=== PATIENT | female | born 1945 | race Caucasian/White ===

== ENCOUNTER 2022-07-23 16:31 | Inpatient (IN) | payer BC ==
[~2022-07-23] VITALS: Ht 160 cm; Wt 53.1 kg
[2022-07-23 16:44] VITALS: BP_SYST 139
--- NOTE | 2022-07-23 16:44 | NUR ---
Patient triaged and placed in waiting room. VSS and patient appears in no acute distress at this time. Accompanied by FAMILY, awaiting available bed, and MD notified of need for MSE.
--- NOTE | 2022-07-23 17:02 | NUR ---
BROUGHT BACK TO BED #5 AND TRIAGED. REPORT GIVEN TO CRISTA
--- NOTE | 2022-07-23 17:25 | NUR ---
EDP AT BEDSIDE FOR INITIAL ASSESSMENT.
[2022-07-23 17:33] LABS: BASOPHILS # (AUTO) 0.1 K/uL (0.0-0.2); BASOPHILS % (AUTO) 1.5 % (0.0-2.0); EOSINOPHILS # (AUTO) 0.2 K/uL (0.0-0.4); EOSINOPHILS % (AUTO) 2.4 % (0.0-4.0); HEMATOCRIT 22.1 % (36-48); HEMOGLOBIN 7.2 g/dL (12.0-16.0); LYMPHOCYTES % (AUTO) 39.4 % (20.5-51.5); MEAN CORPUSCULAR HEMOGLOBIN 31 pg (27-31); MEAN CORPUSCULAR HGB CONC 33 % (32-36); MEAN CORPUSCULAR VOLUME 94 fL (79.0-98.0); MONOCYTES # (AUTO) 0.7 K/uL (0.0-1.0); MONOCYTES % (AUTO) 9.2 % (1.7-9.3); NEUTROPHILS # (AUTO) 3.6 K/uL (1.8-7.7); NEUTROPHILS % (AUTO) 47.5 % (40.0-70.0); PLATELET COUNT (AUTO) 216 K/uL (130-430); RED BLOOD CELL COUNT(AUTO) 2.36 MIL/uL (4.2-6.2); RED CELL DISTRIBUTION WIDTH 14.7 % (9.0-15.0); WHITE BLOOD COUNT (AUTO) 7.5 K/uL (4.8-10.8)
[2022-07-23 17:50] LABS: ANION GAP 9 (5-15); CHLORIDE 107 mmol/L (98-107); CREATININE 1.49 mg/dL (0.55-1.30); GLUCOSE 113 mg/dL (70-99); UREA NITROGEN, BLOOD 28 mg/dL (8-21)
[2022-07-23 17:58] LABS: ALANINE AMINOTRANSFERASE 16 U/L (12-78); ALBUMIN 3.7 g/dL (3.4-4.8); ASPARTATE AMINOTRANSFERASE 23 U/L (10-37); TOTAL BILIRUBIN 0.2 mg/dL (0.0-1.0)
--- NOTE | 2022-07-23 18:05 | NUR ---
RECTAL EXAM PERFORMED BY EDP WITH FEMALE RN AT BEDSIDE AND DAUGHTER.
--- NOTE | 2022-07-23 18:33 | NUR ---
PATIENT AMBULATORY TO BATHROOM.
[2022-07-23] MEDS: D5/0.45 NS 1,000 ML IV SCH (19:05)
--- NOTE | 2022-07-23 19:50 | NUR ---
Received report from SOO Santamaria; assuming care of patient at this time.
--- NOTE | 2022-07-23 20:00 | NUR ---
Patient A/Ox4, VSS, ambulatory, resp even and unlabored. Patient resting comfortably in bed stephanie safety precautions in place. Patient's daughter at bedside. Nad noted at this time.
--- NOTE | 2022-07-23 20:45 | NUR ---
Patient's daughter going home at this time; left phone number to be contacted when patient goes to floor or with any updates. Patient's daughter, Julianna Mcconnell, .
--- NOTE | 2022-07-23 20:58 | NUR ---
Consent signed per patient Mishel King agreeing to administration of blood. Blood has been type and crossmatched. Blood sent from blood bank. Information on unit of blood checked against patient wristband at bedside by two nurses. All information matches. Patient or responsible libertarian informed of potential complications associated with blood transfusion. Informed of possible transfusion reaction symptoms. Aware of need to notify nurse at once of itching, shortness of breath, flushing, feeling of impending doom, or other symptoms not previously present. Vital signs taken within 5 minutes prior to initiation of transfusion. RN will remain with patient for first 15 minutes of transfusion at which time vital signs will be re-assessed.
--- NOTE | 2022-07-23 21:13 | NUR ---
Patient tolerating blood transfusion well.
[2022-07-23] MEDS: PANTOPRAZOLE SODIUM 40 MG TAB PO SCH (21:37)
--- NOTE | 2022-07-23 23:20 | NUR ---
COVID SWAB COLLECTED AND SENT TO LAB.
--- NOTE | 2022-07-24 | NUR ---
Patient sleeping comfortably in bed with safety precautions in place. NAD noted at this time.
--- NOTE | 2022-07-24 04:58 | NUR ---
Patient sleeping comfortably in bed with safety precautions in place. Nad noted at this time
[2022-07-24] MEDS ORDERED: ONDANSETRON HCL 4 MG/2 ML VIAL IVP PRN (06:15)
--- NOTE | 2022-07-24 07:13 | NUR ---
Report given to SOO Navarro who will assume care of patient at this time
--- NOTE | 2022-07-24 07:15 | NUR ---
RECEIVED PT IN BED #5 FROM NIGHTSHIFT RN. PT IS STABLE, NAD, VSS, SLEEPING AT THIS TIME, AAOX3, AWAITING DISPOSITION TO TELE FLOOR.
--- NOTE | 2022-07-24 07:32 | NUR ---
Admit bed requested Patient will be admitted to care of . Admitted to TELE unit. Diagnosis GI BLEED Inpatient (Yes or No) YES Observation (Yes or No) NO Orientation concerns or request close to nursing station (Yes or No) NO Covid Status NEGATIVE On vent or bipap NO Isolation requirements NO Needs a sitter NO From Home (Yes or if No enter name of facility) HOME Requires Dialysis (Yes or No) NO Med Rec Completed (Yes of No) YES
--- NOTE | 2022-07-24 07:45 | NUR ---
DAUGHTER AND MD LUCIA AT BEDSIDE. PT AND FAMILY UPDATED WITH CURRENT STATUS AND COLONOSCOPY TOMORROW. CURRENT DIET REMAINS CLEAR LIQUID.
[2022-07-24] MEDS: PANTOPRAZOLE SODIUM 40 MG TAB PO SCH ×2 (09:00→22:50)
[2022-07-24] MEDS ORDERED: PANTOPRAZOLE SODIUM 40 MG TAB PO ONE (09:09)
[2022-07-24 15:30] VITALS: BP_SYST 152
--- NOTE | 2022-07-24 15:30 | NUR ---
ADMISSION NOTE RECEIVED PT FROM [place] [facility]. SHE IS ALERT, NON ARMENIAN SPEAKING, IV IN RIGHT FOREARM. PT'S DAUGHTER FOLLOWED INTO HER ROOM. MEDICAL HISTORY PROVIDED BY HER AND THE PATIENT.
--- NOTE | 2022-07-24 15:57 | NUR ---
GI CONSULT DR LUCIA IS AWARE.
[2022-07-24] MEDS ORDERED: BISACODYL 5 MG TABLET.DR (DULCOLAX) PO ONE (17:00)
[2022-07-24] MEDS ORDERED: GOLYTELY / COLYTE SOLUTION 4 LITERS PO ONE (18:00)
--- NOTE | 2022-07-24 18:05 | NUR ---
CONSENT PT GAVE CONSENT FOR COLONOSCOPY, WITNESSED BY PT'S DAUGHTER RUSLAN.
[2022-07-24] MEDS: D5/0.45 NS 1,000 ML IV SCH (22:52)
[2022-07-25 08:00] VITALS: BP_SYST 163
[2022-07-25] MEDS: PANTOPRAZOLE SODIUM 40 MG TAB PO SCH ×2 (09:00→20:13)
[2022-07-25 09:13] LABS: PROTHROMBIN TIME 10.1 SECS (9.5-12.5)
[2022-07-25 09:18] LABS: ALANINE AMINOTRANSFERASE 12 U/L (12-78); ALBUMIN 3.3 g/dL (3.4-4.8); ANION GAP 8 (5-15); ASPARTATE AMINOTRANSFERASE 18 U/L (10-37); CALCIUM 8.4 mg/dL (8.4-11.0); CHLORIDE 114 mmol/L (98-107); CREATININE 1.11 mg/dL (0.55-1.30); GLUCOSE 105 mg/dL (70-99); TOTAL BILIRUBIN 0.4 mg/dL (0.0-1.0); UREA NITROGEN, BLOOD 12 mg/dL (8-21)
[2022-07-25 09:45] LABS: HEMATOCRIT 22.8 % (36-48); HEMOGLOBIN 7.3 g/dL (12.0-16.0); MEAN CORPUSCULAR HEMOGLOBIN 28 pg (27-31); MEAN CORPUSCULAR HGB CONC 32 % (32-36); MEAN CORPUSCULAR VOLUME 88 fL (79.0-98.0); RED BLOOD CELL COUNT(AUTO) 2.59 MIL/uL (4.2-6.2); RED CELL DISTRIBUTION WIDTH 18.4 % (9.0-15.0); WHITE BLOOD COUNT (AUTO) 5.9 K/uL (4.8-10.8)
[2022-07-25 09:46] LABS: BASOPHILS % (AUTO) 0.7 % (0.0-2.0); EOSINOPHILS # (AUTO) 0.2 K/uL (0.0-0.4); EOSINOPHILS % (AUTO) 2.6 % (0.0-4.0); LYMPHOCYTES % (AUTO) 33.3 % (20.5-51.5); MONOCYTES # (AUTO) 0.5 K/uL (0.0-1.0); MONOCYTES % (AUTO) 9.2 % (1.7-9.3); NEUTROPHILS # (AUTO) 3.2 K/uL (1.8-7.7); NEUTROPHILS % (AUTO) 54.2 % (40.0-70.0); PLATELET COUNT (AUTO) 189 K/uL (130-430)
[2022-07-25] MEDS ORDERED: MIDAZOLAM HCL 5 MG/5 ML VIAL ONE (10:16)
[2022-07-25] MEDS ORDERED: MEPERIDINE HCL/PF 25 MG/ML DISP.SYRIN ONE (10:16)
[2022-07-25] MEDS ORDERED: TOPXL100 PO (11:12)
[2022-07-25] MEDS ORDERED: LISI2.5T48 PO (11:12)
[2022-07-25] MEDS ORDERED: fentaNYL CITRATE/PF 100 MCG/2 ML AMP ONE (11:16)
[2022-07-25 12:14] VITALS: BP_SYST 140
[2022-07-25] MEDS: D5/0.45 NS 1,000 ML IV SCH (15:22)
--- NOTE | 2022-07-25 16:00 | NUR ---
pt resting quietly no s/s of distress no bloody stools at this time. will continue to monitor.
[2022-07-25 16:41] VITALS: BP_SYST 140
[2022-07-25 20:00] VITALS: BP_SYST 127
--- NOTE | 2022-07-25 20:00 | NUR ---
Paged Dr. Marie for home meds patient is tachycardic.
[2022-07-25 23:51] VITALS: BP_SYST 104
--- NOTE | 2022-07-26 | NUR ---
PATIENT RESTING: Patient resting quietly. No acute distress noted. Vital signs within normal range.
--- NOTE | 2022-07-26 05:28 | NUR ---
CONSULTATION PAGED/CALLED Reason for Consultation: CARDIOMYOPATHY Person Who was Notified: DR ROS Davis Consulting Physician: DR. ROS Davis [employer]ipelines Supervisor Specialty: COLLECTIONS MANAGER Ordering Physician: DR. DOMÍNGUEZ
--- NOTE | 2022-07-26 06:25 | NUR ---
Cardio/tachycardic Patient tachycardic up to 140/min out of bed denies any chest pain,no dizziness, morning beta almita given early ,in bed HR 110/min, will monitor.
[2022-07-26] MEDS: METOPROLOL SUCCINATE 50 MG TAB.SR.24H (TOPROL XL) PO SCH (06:30)
[2022-07-26 08:59] LABS: BASOPHILS # (AUTO) 0.1 K/uL (0.0-0.2); BASOPHILS % (AUTO) 0.7 % (0.0-2.0); EOSINOPHILS # (AUTO) 0.3 K/uL (0.0-0.4); EOSINOPHILS % (AUTO) 3.9 % (0.0-4.0); LYMPHOCYTES # (AUTO) 1.3 K/uL (1.0-5.5); LYMPHOCYTES % (AUTO) 16.7 % (20.5-51.5); MEAN CORPUSCULAR HEMOGLOBIN 29 pg (27-31); MEAN CORPUSCULAR HGB CONC 32 % (32-36); MEAN CORPUSCULAR VOLUME 88 fL (79.0-98.0); MONOCYTES # (AUTO) 0.6 K/uL (0.0-1.0); MONOCYTES % (AUTO) 7.6 % (1.7-9.3); NEUTROPHILS # (AUTO) 5.7 K/uL (1.8-7.7); NEUTROPHILS % (AUTO) 71.1 % (40.0-70.0); PLATELET COUNT (AUTO) 166 K/uL (130-430); RED BLOOD CELL COUNT(AUTO) 2.38 MIL/uL (4.2-6.2); RED CELL DISTRIBUTION WIDTH 18.2 % (9.0-15.0)
[2022-07-26 09:00] VITALS: BP_SYST 154
[2022-07-26] MEDS ORDERED: lisinopriL 5 MG TABLET PO SCH (09:00)
--- NOTE | 2022-07-26 09:00 | NUR ---
PT RESTING QUIETLY NO COMPLAINTS THIS AM. DAUGHTER AT BEDSIDE PLAN OF CARE DISCUSSED WITH PT. WILL CONTINUE TO MONITOR PT
[2022-07-26] MEDS: PANTOPRAZOLE SODIUM 40 MG TAB PO SCH ×2 (09:07→20:14)
[2022-07-26 09:43] LABS: HEMOGLOBIN 6.8 g/dL (12.0-16.0)
[2022-07-26] MEDS ORDERED: lisinopriL 5 MG TABLET PO ONE (12:30)
[2022-07-26 15:30] VITALS: BP_SYST 153
[2022-07-26 20:00] VITALS: BP_SYST 179
[2022-07-26] MEDS: D5/0.45 NS 1,000 ML IV SCH (22:55)
[2022-07-27 00:19] VITALS: BP_SYST 162
[2022-07-27] MEDS: D5/0.45 NS 1,000 ML IV SCH ×2 (03:00→23:32)
--- NOTE | 2022-07-27 05:20 | NUR ---
ROUNDS PATIENT IS SLEEPING COMFORTABLE IN HER BED, NO S/S OF DISTRESS, WILL CONTINUE TO MONITOR FOR ANY ADVERSE REACHING DUE TO THE BLOOD TRANSFUSION.
--- NOTE | 2022-07-27 07:14 | NUR ---
CLOSING Patient is AOx4 Danish speaking, able to ambulate to the bathroom with assist, no c/o pain nor discomfort. bed at lowest position and call light within reach. endorse to incoming nurse.
--- NOTE | 2022-07-27 07:15 | NUR ---
Opening note Received SBAR from night RN. Patient in bed, respirations even, non labored, bed in low and locked position call light within reach. bed alarm on.
[2022-07-27 08:00] VITALS: BP_SYST 158
[2022-07-27] MEDS: lisinopriL 20 MG TABLET PO SCH (08:50)
[2022-07-27] MEDS: PANTOPRAZOLE SODIUM 40 MG TAB PO SCH ×2 (08:50→21:02)
[2022-07-27] MEDS: METOPROLOL SUCCINATE 50 MG TAB.SR.24H (TOPROL XL) PO SCH (08:51)
--- NOTE | 2022-07-27 08:57 | NUR ---
nurse note patient in bed, respirations even, non labored. Bed in low and locked position call light within reach, bed alarm on. daughter is bedside. patient denies any pain or discomfort
[2022-07-27 09:21] LABS: BASOPHILS # (AUTO) 0.1 K/uL (0.0-0.2); BASOPHILS % (AUTO) 0.9 % (0.0-2.0); EOSINOPHILS # (AUTO) 0.5 K/uL (0.0-0.4); EOSINOPHILS % (AUTO) 5.8 % (0.0-4.0); HEMATOCRIT 33.6 % (36-48); HEMOGLOBIN 11.3 g/dL (12.0-16.0); LYMPHOCYTES # (AUTO) 1.9 K/uL (1.0-5.5); LYMPHOCYTES % (AUTO) 23.9 % (20.5-51.5); MEAN CORPUSCULAR HEMOGLOBIN 30 pg (27-31); MEAN CORPUSCULAR HGB CONC 34 % (32-36); MEAN CORPUSCULAR VOLUME 89 fL (79.0-98.0); MONOCYTES # (AUTO) 0.8 K/uL (0.0-1.0); MONOCYTES % (AUTO) 10.5 % (1.7-9.3); NEUTROPHILS # (AUTO) 4.7 K/uL (1.8-7.7); NEUTROPHILS % (AUTO) 58.9 % (40.0-70.0); PLATELET COUNT (AUTO) 155 K/uL (130-430); RED BLOOD CELL COUNT(AUTO) 3.79 MIL/uL (4.2-6.2); RED CELL DISTRIBUTION WIDTH 15.6 % (9.0-15.0); WHITE BLOOD COUNT (AUTO) 7.9 K/uL (4.8-10.8)
--- NOTE | 2022-07-27 09:25 | NUR ---
bloody stool patient had bowel movement, blood present in toilet
[2022-07-27 12:00] VITALS: BP_SYST 159
--- NOTE | 2022-07-27 13:40 | NUR ---
NURSE NOTE PATIENT IN BED, RESPIRATIONS EVEN, NON LABORED, 2L 02 NASAL CANULA BED IN LOW AND LOCKED POSITION, CALL LIGHT WITHIN REACH, FRIEND BEDSIDE
--- NOTE | 2022-07-27 13:51 | NUR ---
NURSE NOTE PATIENT TAKEN VIA WHEEL CHAIR TO GI LAB Addendum: 07/27/22 at 1448 by Placido Damon RN NOT IN GI BUT IN NUCLEAR MED
--- NOTE | 2022-07-27 14:45 | NUR ---
NURSE NOTE WHILE PATIENT OUT OF THE ROOM, CHANGED BED LINENS
--- NOTE | 2022-07-27 16:09 | NUR ---
returned returned from [facility]. patient in bed, respirations even, non labored, bed in low and locked position, call light within reach, attached to IVF's
[2022-07-27 16:10] VITALS: BP_SYST 158
--- NOTE | 2022-07-27 17:40 | NUR ---
NURSE NOTE PATIENT IN BED, RESPIRATIONS EVEN, NON LABORED, BED IN LOW AND LOCKED POSITION CALL LIGHT WITHIN REACH, IVF'S RUNNING ORDERED. DAUGHTER IS BEDSIDE
--- NOTE | 2022-07-27 19:15 | NUR ---
CLOSING PROVIDED SBAR TO NIGHT RN. PATIENT IN BED, RESPIRATIONS EVEN, NON LABORED BED IN LOW AND LOCKED POSITION, CALL LIGHT WITHIN REACH, IVF'S RUNNING ORDERED. BED IN LOW AND LOCKED POSITION CALL LIGHT WITHIN REACH, ENDORSED CARE TO NIGHT RN.
[2022-07-27 20:00] VITALS: BP_SYST 136
--- NOTE | 2022-07-27 23:29 | NUR ---
Patient in bed. No acute distress noted. Patient requested a warm blanket. [place] given to the patient. Will continue to monitor.
[2022-07-28 04:00] VITALS: BP_SYST 125
[2022-07-28 08:54] LABS: ANION GAP 5 (5-15); BASOPHILS % (AUTO) 0.5 % (0.0-2.0); CALCIUM 8.5 mg/dL (8.4-11.0); CHLORIDE 108 mmol/L (98-107); CREATININE 1.08 mg/dL (0.55-1.30); EOSINOPHILS # (AUTO) 0.4 K/uL (0.0-0.4); EOSINOPHILS % (AUTO) 5.3 % (0.0-4.0); GLUCOSE 112 mg/dL (70-99); HEMATOCRIT 31.8 % (36-48); HEMOGLOBIN 10.5 g/dL (12.0-16.0); LYMPHOCYTES # (AUTO) 1.6 K/uL (1.0-5.5); LYMPHOCYTES % (AUTO) 19.8 % (20.5-51.5); MEAN CORPUSCULAR HEMOGLOBIN 30 pg (27-31); MEAN CORPUSCULAR HGB CONC 33 % (32-36); MEAN CORPUSCULAR VOLUME 89 fL (79.0-98.0); MONOCYTES # (AUTO) 0.7 K/uL (0.0-1.0); MONOCYTES % (AUTO) 8.4 % (1.7-9.3); NEUTROPHILS # (AUTO) 5.5 K/uL (1.8-7.7); PLATELET COUNT (AUTO) 145 K/uL (130-430); RED BLOOD CELL COUNT(AUTO) 3.56 MIL/uL (4.2-6.2); RED CELL DISTRIBUTION WIDTH 15.7 % (9.0-15.0); UREA NITROGEN, BLOOD 11 mg/dL (8-21); WHITE BLOOD COUNT (AUTO) 8.3 K/uL (4.8-10.8)
[2022-07-28] MEDS: METOPROLOL SUCCINATE 50 MG TAB.SR.24H (TOPROL XL) PO SCH (09:51)
[2022-07-28] MEDS: lisinopriL 20 MG TABLET PO SCH (09:51)
[2022-07-28] MEDS: PANTOPRAZOLE SODIUM 40 MG TAB PO SCH ×2 (09:52→20:29)
[2022-07-28] MEDS ORDERED: SILDENAFIL CITRATE 20 MG TABLET PO ONE (11:30)
[2022-07-28 11:46] VITALS: BP_SYST 158
[2022-07-28] MEDS: SILDENAFIL CITRATE 20 MG TABLET PO SCH ×2 (15:00→20:29)
[2022-07-28 16:39] VITALS: BP_SYST 146
[2022-07-28] MEDS: D5/0.45 NS 1,000 ML IV SCH (19:00)
[2022-07-28 20:00] VITALS: BP_SYST 156
--- NOTE | 2022-07-28 21:55 | NUR ---
Patient in bed. No acute distress noted. No bleeding noted. Will continue to monitor.
[2022-07-29 03:26] VITALS: BP_SYST 96
--- NOTE | 2022-07-29 07:32 | NUR ---
OPENING NOTES: RECEIVED BEDSIDE SBAR FROM PM SHIFT NURSE, NO S/S OF DISTRESS, NON LABOR BREATHING IV INTACT, BED AT LOW AND LOCKED POSITION CALL LIGHT IN REACH SAFETY CHECKS DONE THIS AM, WILL MONITOR PATIENT FOR ORDERS.
[2022-07-29 07:49] LABS: BASOPHILS % (AUTO) 0.4 % (0.0-2.0); EOSINOPHILS # (AUTO) 0.5 K/uL (0.0-0.4); EOSINOPHILS % (AUTO) 5.2 % (0.0-4.0); HEMATOCRIT 32.2 % (36-48); HEMOGLOBIN 10.9 g/dL (12.0-16.0); LYMPHOCYTES # (AUTO) 1.8 K/uL (1.0-5.5); LYMPHOCYTES % (AUTO) 19.9 % (20.5-51.5); MEAN CORPUSCULAR HEMOGLOBIN 30 pg (27-31); MEAN CORPUSCULAR HGB CONC 34 % (32-36); MEAN CORPUSCULAR VOLUME 89 fL (79.0-98.0); MONOCYTES # (AUTO) 0.8 K/uL (0.0-1.0); MONOCYTES % (AUTO) 9.4 % (1.7-9.3); NEUTROPHILS # (AUTO) 5.7 K/uL (1.8-7.7); NEUTROPHILS % (AUTO) 65.1 % (40.0-70.0); PLATELET COUNT (AUTO) 143 K/uL (130-430); RED BLOOD CELL COUNT(AUTO) 3.61 MIL/uL (4.2-6.2); RED CELL DISTRIBUTION WIDTH 15.8 % (9.0-15.0); WHITE BLOOD COUNT (AUTO) 8.8 K/uL (4.8-10.8)
[2022-07-29 07:59] LABS: ANION GAP 7 (5-15); CALCIUM 8.7 mg/dL (8.4-11.0); CHLORIDE 107 mmol/L (98-107); GLUCOSE 101 mg/dL (70-99); UREA NITROGEN, BLOOD 10 mg/dL (8-21)
[2022-07-29 08:01] VITALS: BP_SYST 112
[2022-07-29] MEDS: SILDENAFIL CITRATE 20 MG TABLET PO SCH (08:55)
[2022-07-29] MEDS: lisinopriL 20 MG TABLET PO SCH (08:56)
[2022-07-29] MEDS: PANTOPRAZOLE SODIUM 40 MG TAB PO SCH (08:56)
[2022-07-29] MEDS: METOPROLOL SUCCINATE 50 MG TAB.SR.24H (TOPROL XL) PO SCH (08:57)
[2022-07-29] MEDS ORDERED: PRO40 PO (10:07)
[2022-07-29] MEDS ORDERED: HYDR25SU33 RC (10:07)
[2022-07-29 13:17] VITALS: BP_SYST 120
== END 2022-07-29 13:20 | disposition home health service (06) | DRG 377 ==
LOC: SED 16:31 → STU 18:42
PROVIDERS: ADMIT Specialist; ATTEND Specialist
PROC: 0DBM8ZZ Excision of Descending Colon, Via Natural or Artificial Opening Endoscopic (ICD-10-PCS; principal; 2022-07-25 11:00)
PROC: 0DBL8ZZ Excision of Transverse Colon, Via Natural or Artificial Opening Endoscopic (ICD-10-PCS; 2022-07-25 11:00)
PROC: 30233N1 Transfusion of Nonautologous Red Blood Cells into Peripheral Vein, Percutaneous Approach (ICD-10-PCS; 2022-07-26)
DX: K57.31 Diverticulosis of large intestine without perforation or abscess with bleeding (principal); N17.0 Acute kidney failure with tubular necrosis; D62 Acute posthemorrhagic anemia; I43 Cardiomyopathy in diseases classified elsewhere; K64.8 Other hemorrhoids; I10 Essential (primary) hypertension; Z20.822 Contact with and (suspected) exposure to COVID-19
CPT/HCPCS: 36415; 45384; 45385; 71045; 76376; 78278-TC; 80048; 80053; 82272; 83880; 84484; 85025; 85610-TC; 86886; 86900; 86901; 86920; 88305; 93005; 93306; 99285; G0378; J2175; J2250; J3010; J7050; P9021